=== PATIENT | female | born 1975 | race Caucasian/White ===

== ENCOUNTER 2022-07-28 17:55 | Emergency (ER) | payer BC, OTHER ==
[2022-07-28] MEDS ORDERED: Ondansetron 4 MG Tab.DIS PO ONE (19:38)
[2022-07-28] MEDS ORDERED: Morphine 2 MG/ML SYRINGE IM ONE (19:38)
[2022-07-28] MEDS ORDERED: Ibuprofen 400 MG Tab ONE (20:00)
[2022-07-28] MEDS ORDERED: traMADol 50 MG Tab ONE (20:00)
[2022-07-28] MEDS ORDERED: Acetaminophen/HYDROcodone 325-5 MG Tab ONE (20:00)
[2022-07-28 21:57] VITALS: BP 161/94; PULSE 79
== END 2022-07-28 20:35 | disposition home or self-care (01) ==
LOC: LB.ED 17:55
DX: S82.444A Nondisplaced spiral fracture of shaft of right fibula, initial encounter for closed fracture (principal); Z79.899 Other long term (current) drug therapy; Z88.8 Allergy status to other drugs, medicaments and biological substances; Z88.2 Allergy status to sulfonamides; X50.0XXA Overexertion from strenuous movement or load, initial encounter; Y93.01 Activity, walking, marching and hiking
CPT/HCPCS: 29515; 73610-RT; 96372; 99283; A9270-GY; J2270; Q0162